=== PATIENT | female | born 1955 | race Two or more races ===

== ENCOUNTER 2025-02-27 11:24 | Emergency (ER) | payer OTHER, MEDICAID ==
[~2025-02-27] VITALS: Ht 149.9 cm; Wt 65.5 kg
[2025-02-27 12:10] VITALS: BP 140/75; TEMP 99
--- NOTE | 2025-02-27 12:35 | ED.PDOC ---
HPI (NEURO) HPI Comments This is a 69 year old female presenting to the ED with chief complaint of headache. Patient reports that she has been experiencing a headache with associated facial pain, neck pain, shoulder pain, leg pain, nausea, vomiting, dizziness, and blurred vision for the past 2 weeks. Patient denies any diarrhea, abdominal pain, chest pain, SOB, numbness, or weakness. Chief Complaint: Headache Time Seen by MD: 12:32 Reviewed Notes: Nurses Notes, Medications, Allergies Information Source: Patient Mode of Arrival: Ambulatory Severity: Moderate Headache Severity: Severe Timing: Weeks Duration: Since onset Prehospital treatment: None Headache Quality: Sharp, Stabbing Headache Location: Occipital Onset: At rest Circumstances: Spontaneous Past Medical History PAST MEDICAL HISTORY: DM, High Lipids, HTN Surgical History: Thyroidectomy FINANCIAL ACCOUNTING ANALYST History: Denies all FINANCIAL ACCOUNTING ANALYST Hx Family History Family History: Reviewed,noncontributory to illness Social History Smoker: Non-Smoker Alcohol: Denies ETOH Use Drugs: Denies Drug Use Lives In: Home Constitutional: denies: chills, diaphoresis, fatigue, fever, malaise, sweats, weakness, others EENTM: reports: blurred vision; denies: double vision, ear bleeding, ear discharge, ear drainage, ear pain, ear ringing, eye pain, eye redness, hearing loss, mouth pain, mouth swelling, nasal discharge, nose bleeding, nose congestion, nose pain, photophobia, tearing, throat pain, throat swelling, voice changes, others Respiratory: denies: cough, hemoptysis, orthopnea, SOB at rest, shortness of breath, SOB with excertion, stridor, wheezing, others Cardiovascular: denies: chest pain, dizzy spells, diaphoresis, Dyspnea on exertion, edema, irregular heart beat, left arm pain, lightheadedness, palpitations, PND, syncope, others Gastrointestinal: reports: nausea, vomiting; denies: abdomen distended, abdominal pain, blood streaked bowels, constipated, diarrhea, dysphagia, difficulty swallowing, hematemesis, melena, poor appetite, poor fluid intake, rectal bleeding, rectal pain, others Genitourinary: denies: abnormal vagina bleeding, burning, dyspareunia, dysuria, flank pain, frequency, hematuria, incontinence, pain, , vagina discha rge, urgency, others Neurological: reports: dizziness, headache; denies: fainting, left sided numbness, left sided weakness, numbness, paresthesia, pre-existing deficit, right sided numbness, right sided weakness, seizure, speech problems, tingling, tremors, weakness, others Musculoskeletal: reports: neck pain, others (Face pain, shoulder pain, leg pain); denies: back pain, gout, joint pain, joint swelling, muscle pain, muscle stiffness Integumetry: denies: bruises, change in color, change in hair/nails, dryness, laceration, lesions, lumps, rash, wounds, others Allergic/Immunocompromised: denies: Difficulty Healing, Frequent Infections, Hives, Itching, others Hematologic/Lymphatic: denies: anemia, blood clots, easy bleeding, easy bruising, swollen glands, others Endocrine: denies: excessive hunger, excessive sweating, excessive thirst, excessive urination, flushing, intolerance to cold, intolerance to heat, unexplained weight gain, unexplained weight loss, others Psychiatric: denies: anxiety, bipolar disorder, depression, hopeless, panic disorder, schizophrenia, sleepless, suicidal, others All Other Systems: Reviewed and Negative Physical Exam General Appearance: Moderate Distress, Normal HEENT: Normal ENT Inspection, PERRL/EOMI Neck: Full Range of Motion, Non-Tender, Normal, Normal Inspection Respiratory: Chest Non-Tender, Lungs Clear, No Accessory Muscle Use, No Respiratory Distress, Normal Breath Sounds Cardiovascular: No Edema, No JVD, No Murmur, No Gallop, Normal Peripheral Pulses, Regular Rate/Rhythm Breast Exam: Deferred Gastrointestinal: No Organomegaly, Non Tender, No Pulsatile Mass, Normal Bowel Sounds, Soft Genitalia: Deferred Pelvic: Deferred Rectal: Deferred Extremities: No calf tenderness, Normal capillary refill, Normal inspection, Normal range of motion, Non-tender, No pedal edema Neurologic: Alert, canteen operator II-XII nml as Tested, Headache, No Motor Deficits, Normal Affect, Normal Mood, No Sensory Deficits Cerebellar Function: Normal Reflexes: Normal Skin: Bruises, Dry, Normal Color, Warm Peripheral Pulses: 1+ carotid (R), 1+ carotid (L) Lymphatic: No Adenopathy Was a procedure done? Was a procedure done?: No Differential Diagnosis (SZ) Seizure: CVA/TIA, Hypocalcemia, Hypoglycemia, Hyponatremia, Mass Lesion CVA: Electrolyte Imbalance, Mass Lesion, TIA General Weakness: Anemia, Dehydration, Dysrhythmia, Hypoglycemia, Hypotension, Hypovolemia, TIA Headache: Migraine, Subarachnoid Hemorrhage, Mass Lesion X-Ray, Labs, Meds, VS Vital Signs Date Time Temp Pulse Resp B/P (MAP) Pulse Ox O2 Delivery O2 Flow Rate FiO2 02/27/25 13:45 85 18 96 Room Air* 0 21 02/27/25 12:10 99.0 81 16 140/75 (96) 98 99.0 Lab Test 02/27/25 13:26 Range/Units White Blood Count 7.7 4.4-10.8 10^3/uL Red Blood Count 4.04 4.0-5.20 10^6/uL Hemoglobin 12.4 12.2-16.2 g/dL Hematocrit 37.0 36.0-46.0 % Mean Corpuscular Volume 91.6 80.0-100.0 fL Mean Corpuscular Hemoglobin 30.6 28.0-32.0 pg Mean Corpuscular Hemoglobin Concent 33.4 32.0-36.0 g/dL Red Cell Distribution Width 14.3 11.8-14.3 % Platelet Count 290 140-450 10^3/uL Mean Platelet Volume 7.2 6.9-10.8 fL Neutrophils (%) (Auto) 68.6 37.0-80.0 % Lymphocytes (%) (Auto) 21.1 10.0-50.0 % Monocytes (%) (Auto) 8.2 0.0-12.0 % Eosinophils (%) (Auto) 1.6 0.0-7.0 % Basophils (%) (Auto) 0.5 0.0-2.0 % Neutrophils # (Auto) 5.3 1.6-8.6 10 ^3/uL Lymphocytes # (Auto) 1.6 0.4-5.4 10 ^3/uL Monocytes # (Auto) 0.6 0-1.3 10 ^3/uL Eosinophils # (Auto) 0.1 0-0.8 10 ^3/uL Basophils # (Auto) 0 0-0.2 10 ^3/uL Nucleated Red Blood Cells 0.0 % Prothrombin Time 10.8 9.3-11.8 sec Prothrombin Time INR 1.02 0.9-1.15 Activated Partial Thromboplast Time 30.2 24.5-34.5 SEC Sodium Level 143 136-145 mmol/L Potassium Level 4.2 3.5-5.1 mmol/L Chloride Level 104 98-107 mmol/L Carbon Dioxide Level 27 20-31 mmol/L Anion Gap 12 5-15 Blood Urea Nitrogen 16 9-23 mg/dL Creatinine 0.80 0.550-1.02 mg/dL Glomerular Filtration Rate Calc 79 >90 mL/min BUN/Creatinine Ratio 20.0 10.0-20.0 Serum Glucose 86 74-106 mg/dL Calcium Level 7.1 L 8.7-10.4 mg/dL Plasma/Serum Blood Alcohol < 3.0 <10 mg/dL Current Medications Medications (Trade) Dose Ordered Sig/Zeynep Route Start Time Stop Time Status Last Admin Sodium Chloride 1,000 ml @ 250 mls/hr Q4H ONCE IV 02/27/25 13:00 02/27/25 15:07 DC 02/27/25 13:43 CT Head: Findings: There is no evidence of an intracranial hemorrhage, acute large vessel infarct, mass effect, or midline shift. There is mild cerebral atrophy. Mild calcification of the carotid siphons. The calvarium, orbits, paranasal sinuses, sella, middle ears, and mastoids are unremarkable. The superficial soft tissues are within normal limits. Impression: 1. No acute intracranial abnormality. X-Ray, Labs, Meds, VS Comment Course in the emergency department eventful patient came in with a severe headache occipital going to her back for two weeks patient has history of diabetes hypertension high cholesterol and thyroidectomy The CT head is normal CBC negative BA negative INR is 1.02 BmP negative Patient will be discharged home to follow up with her PCP Images Reviewed?: Images reviewed and evaluated by me Time of 1ST Reevaluation: 13:32 Reevaluation 1ST: Unchanged Time of 2ND Reevaluation: 14:55 Reevaluation 2ND: Improved Consultation: PCP Patient Education/Counseling: Diagnosis, Treatment, Prognosis, Need For Follow Up Family Education/Counseling: Diagnosis, Treatment, Prognosis, Need For Follow Up, No Family Present Departure 1 Departure Time of Disposition: 14:55 Impression: Primary Impression: Occipital headache Disposition: 01 HOME / SELF CARE / HOMELESS Condition: Fair Additional Instructions: Push fluids and follow up with your PCP e-Prescriptions Naproxen (Naproxen) 375 Mg Tab 1 TAB PO BID for 5 Days, #10 TAB 5 Refills Prov: JOSE MOHAN MD 02/27/25 Metoclopramide Hcl (Reglan) 10 Mg Tab 10 MG PO BID for 5 Days, #10 TAB Prov: JOSE MOHAN MD 02/27/25 Cyclobenzaprine Hcl (Cyclobenzaprine Hcl) 10 Mg Tab 10 MG PO TID for 5 Days, #15 TAB Prov: JOSE MOHAN MD 02/27/25 Discharged With: Self Critical Care Note Critical Care Time?: No Stability Stability form required: No Heart Score Heart Score: Heart Score Response (Comments) Value History N/A 0 EKG N/A 0 Age >65 2 Risk Factors 1 or 2 risk factors 1 Troponin N/A 0 Total 3 I personally scribed for JOSE MOHAN MD ([email or web address]) on 02/27/25 at 12:35. Electronically submitted by Brian Perry ([email or web address]). I personally scribed for JOSE MOHAN MD ([email or web address]) on 02/27/25 at 13:45. Electronically submitted by Brian Perry ([email or web address]). JOSE MOHAN MD Feb 27, 2025 12:35
--- NOTE | 2025-02-27 13:36 | DVH ---
Exam: CT HEAD WITHOUT CONTRAST History: Severe occipital headache Technique: [address] images through the posterior fossa and the supratentorial compart ment were acquired without contrast and imaged using soft tissue and bone algorithms. RADIATION DOSE: DLP 996.81 mGy.cm; CTDI vol 56.29 mGy. Comparison: None Findings: There is no evidence of an intracranial hemorrhage, acute large vessel infarct, mass effect, or midli ne shift. There is mild cerebral atrophy. Mild calcification of the carotid siphons. The calvarium, orbits, paranasal sinuses, sella, middle ears, and mastoids are unremarkable. The superficial soft tissues are within normal limits. Impression: 1. No acute intracranial abnormality.
[2025-02-27 13:39] LABS: Hematocrit 37.0 % (36.0-46.0); Hemoglobin 12.4 g/dL (12.2-16.2); Mean Corpuscular Hemoglobin 30.6 pg (28.0-32.0); Mean Corpuscular Volume 91.6 fL (80.0-100.0); Nucleated Red Blood Cells % 0.0 %
[2025-02-27] MEDS: SODIUM CHLORIDE 0.9% 1,000 ML IV ONE (13:43)
[2025-02-27 13:44] LABS: Chloride 104 mmol/L (98-107); Potassium 4.2 mmol/L (3.5-5.1); Sodium 143 mmol/L (136-145)
[2025-02-27 13:45] VITALS: PULSE 85; RESP 18; O2SAT 96
[2025-02-27 13:45] LABS: Anion Gap 12 (5-15); Carbon Dioxide 27 mmol/L (20-31)
[2025-02-27 13:48] LABS: Calcium 7.1 mg/dL (8.7-10.4); INR 1.02 (0.9-1.15); Partial Thromboplastin Time 30.2 SEC (24.5-34.5); Prothrombin Time 10.8 sec (9.3-11.8)
[2025-02-27 13:50] LABS: Glucose 86 mg/dL (74-106)
[2025-02-27 13:51] LABS: BUN/Creatinine Ratio 20.0 (10.0-20.0); Blood Urea Nitrogen 16 mg/dL (9-23)
[2025-02-27] MEDS ORDERED: METO-281 PO (14:58)
[2025-02-27] MEDS ORDERED: CYCL-839 PO (14:58)
[2025-02-27] MEDS ORDERED: NAPR-957 PO (14:58)
== END 2025-02-27 15:07 | disposition home or self-care (01) ==
LOC: ER 11:24
DX: R51.9 Headache, unspecified (principal); E11.9 Type 2 diabetes mellitus without complications; I10 Essential (primary) hypertension; E78.5 Hyperlipidemia, unspecified; Z90.89 Acquired absence of other organs
CPT/HCPCS: 36415; 70450; 80048; 80320; 85025; 85610; 85730; 96360; 99284; J7030